=== PATIENT | male | born 1955 | race Caucasian/White ===

== ENCOUNTER 2022-12-10 09:15 | Day surgery (SDC) | payer OTHER, MEDICARE ==
[2022-12-08 16:06] LABS: Hematocrit 39.4 % (39.6-49.0); Lymphocytes % 16.6 % (15.3-44.8); MCV 96.8 fL (80-100); RBC Red Blood Cell Count 4.07 M/uL (4.33-5.43)
--- NOTE | 2022-12-08 16:13 | RAD REPORT ---
EXAM DESCRIPTION: Uday Case And Lat (2 Views)12/08/2022 4:00 pm CLINICAL HISTORY: Preop for hernia surgery. Hypertension COMPARISON: None FINDINGS: The lungs appear clear of acute infiltrate. The heart is probably mildly enlarged IMPRESSION: No acute abnormalities displayed
[2022-12-08 16:18] LABS: Potassium 4.1 mmol/L (3.5-5.1)
[2022-12-10] MEDS ORDERED: Ringers Lactate 1,000 ML IV ONE (09:39)
[2022-12-10] MEDS ORDERED: propofoL 200 MG/20 ML VIAL IV ONE (10:24)
[2022-12-10] MEDS ORDERED: LIDOCAINE 2% MPF 5 ML VIAL ONE (10:25)
[2022-12-10] MEDS ORDERED: MIDAZOLAM HCL 2 MG/2 ML INJ ONE (10:25)
[2022-12-10] MEDS ORDERED: FENTANYL CITR 100 MCG/2 ML ONE (10:25)
[2022-12-10] MEDS ORDERED: ROCURONIUM 50 MG/5 ML VIAL IV ONE (10:26)
[2022-12-10] MEDS ORDERED: ONDANSETRON 4 MG/2 ML VIAL ONE ×2 (10:27→11:28)
[2022-12-10] MEDS: CIPROFLOXACIN 400mg IV 400 MG/200 ML BAG IV ONE ×3 (10:33→11:25)
[2022-12-10] MEDS ORDERED: NEOSTIGMINE 1 MG/ML -10 ML VIAL ONE (12:19)
--- NOTE | 2022-12-10 12:19 | P.BOP ---
Preoperative diagnosis: bilateral tender inguinal hernias Postoperative diagnosis: same Primary procedure: 1. Laparoscopic repair of Right inguinal hernia with mesh Secondary procedure: 2. Laparoscopic repair of Left inguinal hernia with mesh [employer] Adf Developer: ANA THOMAS (FRONT END SOFTWARE ENGINEER) Estimated blood loss: <10cc Specimen: none Findings: bilateral inguinal hernias Anesthesia: General Complications: None Implants: medium 3D mesh bilateral Transferred to: Recovery Room Condition: Good
[2022-12-10] MEDS ORDERED: TRAMADOL 37.5mg/APAP 325mg PER TAB PO ONE (12:25)
[2022-12-10] MEDS ORDERED: TAMSULOSIN 0.4 MG SR CAP PO ONE (12:25)
[2022-12-10] MEDS ORDERED: GLYCOPYRROLATE 0.2 MG/ML SYR ONE (12:28)
[2022-12-10 13:30] VITALS: BP 133/82; TEMP 97.6; O2SAT 99
[2022-12-10] MEDS ORDERED: TAMSULOSIN 0.4 MG SR CAP ONE (13:40)
[2022-12-10] MEDS ORDERED: TRAMADOL 37.5mg/APAP 325mg PER TAB ONE (14:07)
--- NOTE | 2022-12-12 20:56 | OP ---
Surgeon: Catalino Bird MD District Operations Manager: Nessa Norris. Preoperative Diagnosis: Bilateral tender inguinal hernias. Postoperative Diagnosis: Bilateral tender inguinal hernias. Procedure: Laparoscopic repair of right and left inguinal hernia with mesh. Estimated Blood Loss: Less than 10 cc. Findings: Bilateral inguinal hernias. Anesthesia: General plus local. Implants: A median 3D mesh, bilateral. Indications: This is the case of a male, who comes to us with bilateral inguinal hernias. The benef its, alternatives, and risks of repair with mesh were fully explained, which include, but not limited to infection, bleeding, damage to adjacent structures, anesthesia complication, recurrence, NV, and even . He also understands this may not relieve any symptoms. He might need more than one surg ical intervention. He also understands we are going to be using mesh for those areas with pros and c ons of mesh were fully explained to the patient and after all the questions answered to his satisfact ion, he did agree with the use of mesh. Description Of Procedure: Patient was brought to the operating room, placed in supine position. Ane sthesia was done without complication. Abdominal area was prepped and draped in the usual sterile fa shion, also with the inguinal region. We have to remember this patient has a large ventral hernia wi th mesh going just below the belly button, so we stayed even more caudal to that to avoid going throu gh the previous mesh the patient has in the abdomen. We were able to put the incision in a way so we can find the anterior rectus sheath open on one of the sides and retract muscle laterally to expose the posterior rectus sheath. The extraperitoneal space was gently developed with the help of blunt d issection and a balloon tipped trocar was placed in that area directed towards the pubic symphysis un jena direct visualization with the camera in. After that, we inflated balloon once again under direct visualization, deflated the balloon, removed it, insufflate the area. A 5 mm trocar was placed just above the pubic symphysis and another skilled nursing between the first and second. The preperitoneal space was further developed by exposing the inferior epigastric vessels and keeping them anterior to the d issection plane. Noel ligament was then dissected laterally to the junction with the iliac veins. The dissection continued inferiorly to the iliopubic tract avoiding damage to the femoral branch of the genitofemoral nerve and lateral femoral cutaneous nerve. The cord structures were skeletonized. We clearly identified the hernia sac. It was dissected away from the spermatic cord and retracted b ack into the peritoneum. Then, after that, we went to the opposite side. We did the same steps. Co oper ligament was dissected laterally to the junction with the iliac veins and dissection continued i nferiorly to the iliopubic tract once again avoiding damage to the femoral branch of the genitofemora l nerve and lateral femoral cutaneous nerve. The cord structures were skeletonized, hernia sac was i dentified, and carefully retracted and reduced back into the abdominal cavity. Once we have those ar eas done, we proceeded then to introduce a medium 3D mesh and placed that on the left working space. The mesh was placed to cover the direct, indirect spaces in the left place. The mesh was secured in place lateral and superior to the iliopubic tract and inferior medial to the Noel ligament with th e help of SorbaFix fixation device and protractor. After that, we went to the right side. Once agai n, we placed a 3D mesh on the right side to cover direct and indirect spaces and we secured that in p lace with SorbaFix covering the area making sure the nerves were not included. At that moment, while holding the mesh in place, we proceeded to inspect the area and placed some local anesthetic over th at region and then deflated under direct visualization. The anterior rectus sheath was closed with # 1 Vicryl and the skin was approximated. Sponge count, instrument counts were correct. Patient tolerated the procedure well. Patient was sent to recovery in stable condition. SANTIAGO/AMANDA Voice ID: [id number] Report ID: [id number]
--- NOTE | 2022-12-15 11:00 | DS ---
Date of Discharge: 12/10/2022 Diagnosis: Bilateral tender inguinal hernias. Procedure: Laparoscopic repair of right and left inguinal hernia with mesh. Disposition: Home. Activity: As tolerated. No heavy lifting. Condition: Stable. Plan: Followup in my office in 1 week. Call for appointment at [phone]. Keep the area dry for 48 hours, then may shower. SANTIAGO/AMANDA Voice ID: [id number] Report ID: [id number]
== END 2022-12-10 14:32 | disposition home or self-care (01) ==
LOC: OR 09:15
PROVIDERS: ATTEND Surgery
PROC: 0YUA4JZ Supplement Bilateral Inguinal Region with Synthetic Substitute, Percutaneous Endoscopic Approach (ICD-10-PCS; principal; 2022-12-10 11:00)
DX: K40.00 Bilateral inguinal hernia, with obstruction, without gangrene, not specified as recurrent (principal)
CPT/HCPCS: 85025; 80048; 36415; 71046; 49650; J2704; J2710; J2001; J2250; J3010; J7120; J2405 ×2; J0744